=== PATIENT | male | born 1955 | race Caucasian/White ===

== ENCOUNTER → 2017-03-20 | Outpatient (CLI) | payer BC ==
[~2017-03-20] MED LIST: BUPIVACAINE MPF 0.25% 10 ML VIAL. ONE; DEXAMETHASONE SOD PHOS 4 MG/ML VIAL ONE; LIDOCAINE 1% PF 30 ML VIAL. ONE
== END | disposition home or self-care (01) ==
LOC: SURG 14:41
PROVIDERS: ATTEND Anesthesiology
DX: R07.9 Chest pain, unspecified (principal); M19.91 Primary osteoarthritis, unspecified site
CPT/HCPCS: 20605; J1100; J2001; J3490

== ENCOUNTER → 2017-04-19 | Outpatient (CLI) | payer BC ==
[~2017-04-19] MED LIST changes: -DEXAMETHASONE SOD PHOS 4 MG/ML VIAL ONE; +methylPREDNISolone ACETATE 40 MG/ML VIAL. ONE
== END | disposition home or self-care (01) ==
LOC: SURG 08:44
PROVIDERS: ATTEND Anesthesiology Pain Medicine
DX: R07.1 Chest pain on breathing (principal); M19.90 Unspecified osteoarthritis, unspecified site; E07.9 Disorder of thyroid, unspecified
CPT/HCPCS: 20552; 20600; J1030; J2001; J3490

== ENCOUNTER → 2017-04-27 | Outpatient (CLI) | payer BC ==
[~2017-04-27] MED LIST changes: -LIDOCAINE 1% PF 30 ML VIAL. ONE; +LIDOCAINE 2% PF Vial for OR 5 ML VIAL. ONE; -methylPREDNISolone ACETATE 40 MG/ML VIAL. ONE; +methylPREDNISolone ACETATE 80 MG/ML VIAL. ONE
== END | disposition home or self-care (01) ==
LOC: SURG 07:59
PROVIDERS: ATTEND Anesthesiology Pain Medicine
DX: R07.1 Chest pain on breathing (principal); M19.90 Unspecified osteoarthritis, unspecified site
CPT/HCPCS: 20600; 99213; J1040; J3490; J2001

== ENCOUNTER → 2017-09-27 | Day surgery (SDC) | payer BC ==
[~2017-09-27] MED LIST changes: -BUPIVACAINE MPF 0.25% 10 ML VIAL. ONE; +CYCL-331 PO; +DILT60TA3 PO; +IV RINGERS SOLUTION,LACTATED 1,000 ML IV SCH; +LIDOCAINE 1% PF 2 ML VIAL. ID PRN; -LIDOCAINE 2% PF Vial for OR 5 ML VIAL. ONE; +MELO15TA23 PO; +PROPOFOL 10,000 MCG/ML (20ML) VIAL IV ONE; +PROPOFOL 40 ML IV ONE; +SIMV20TA PO; +TRAZ-90 PO; +VENL37.5 PO; -methylPREDNISolone ACETATE 80 MG/ML VIAL. ONE
[2017-09-27 13:38] VITALS: BP 165/86
== END ==
LOC: SURG 10:22
PROVIDERS: ATTEND Internal Medicine Gastroenterology
DX: Z12.11 Encounter for screening for malignant neoplasm of colon (principal); D12.2 Benign neoplasm of ascending colon; K57.30 Diverticulosis of large intestine without perforation or abscess without bleeding; E78.5 Hyperlipidemia, unspecified; E11.22 Type 2 diabetes mellitus with diabetic chronic kidney disease; I12.9 Hypertensive chronic kidney disease with stage 1 through stage 4 chronic kidney disease, or unspecified chronic kidney disease; N18.2 Chronic kidney disease, stage 2 (mild); F32.9 Major depressive disorder, single episode, unspecified; Z98.890 Other specified postprocedural states
CPT/HCPCS: 45385; J2704; J7120